=== PATIENT | male | born 1965 | race African-American/Black ===

== ENCOUNTER 2020-09-10 09:50 | Emergency (ER) | payer MEDICAID ==
[~2020-09-10] VITALS: Ht 182.9 cm; Wt 82.0 kg
[2020-09-10 09:54] VITALS: BP 178/130
[2020-09-10] MEDS: KETOROLAC 60MG/2ML VIAL IM ONE ×2 (10:27→10:31)
[2020-09-10] MEDS ORDERED: IBUP-2028 PO (10:32)
== END 2020-09-10 10:42 | disposition home or self-care (01) ==
LOC: ER 09:50
DX: R51.9 Headache, unspecified (principal); I10 Essential (primary) hypertension; Z88.0 Allergy status to penicillin; Z98.890 Other specified postprocedural states
CPT/HCPCS: 99283; J1885